=== PATIENT | female | born 2000 | race Caucasian/White ===

== ENCOUNTER 2021-07-14 06:21 | Emergency (ER) | payer SELFPAY ==
[2021-07-14 06:29] VITALS: BP 141/81; PULSE 111; RESP 18; TEMP 36.6; O2SAT 98; BMI 27.4
[2021-07-14 06:49] VITALS: BP 141/81; PULSE 115; RESP 18; TEMP 36.9; O2SAT 98
--- NOTE | 2021-07-14 07:18 | W.ED.ALLEREA ---
Documented by User: [email or web address] Patel 07/14/21 07:42 HPI - Allergic Reaction General: Chief complaint: Allergic Reaction Stated complaint: ALLERGIC REACTION/FULL BODY HIVES/ITCHY THROAT Time Seen by Provider: 07/14/21 06:26 Source: patient Mode of arrival: ambulatory Limitations: no limitations History of Present Illness: HPI narrative: Patient is a 21-year-old female who presents to ED today with a complaint of allergic reaction. Patient states she woke up this morning with diffuse urticaria and pruritus. She is also complaining of her tongue and mouth feeling itchy and scratchy. She has not noticed any intraoral swelling. 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 This reaction was 3 years ago when she has not had any further allergic reactions despite continuing to eat mammalian products. Patient took 50 mg Benadryl [employer]. MD complaint: allergic reaction and hives Onset (ago): hour(s) Exposure: unknown Associated symptoms: Deny abdominal pain, dizziness, nausea or vomiting Treatment prior to arrival: benadryl (50mg) Previous Allergic Reaction History: anaphylaxis Review of Systems Const: Denies: fever(s), chills, body aches, change in appetite, fatigue or malaise Eyes: Denies: change in vision or blurry vision ENMT: Reports: other (reports tongue and throat are scratchy); Denies: throat pain, odynophagia, swelling of lips/tongue, nasal discharge or nasal congestion Card: Denies: chest pain Resp: Denies: dyspnea GI: Denies: abdominal pain, nausea or vomiting Musc: Denies: neck pain, back pain, extremity pain or joint pain Skin/Breast: Reports: rash and pruritus Neuro: Denies: headache(s), numbness in extremities, weakness in extremities, sensory changes or dizziness Physical Exam Const: COMMON NORMALS: no acute distress, average body habitus, patient oriented x3, no limitations, healthy appearing, alert and well nourished GENERAL APPEARANCE: cooperative ORIENTATION/CONSCIOUSNESS: Yes awake, Yes oriented to person, Yes oriented to place and Yes oriented to time HENMT: COMMON NORMALS: normocephalic and atraumatic HEAD & SCALP: normocephalic and atraumatic FACE & SINUS: normal facial exam MOUTH: Normal oral and palatal mucosa present, lip normal, tongue normal and other (no angioedema) THROAT: posterior oropharynx normal, tonsils normal and uvula midline Resp: COMMON NORMALS: normal respiratory effort and clear to auscultation bilaterally AUSCULTATION: clear to auscultation bilaterally Cardio: COMMON NORMALS: regular rate and regular rhythm RATE: regular rate RHYTHM: regular rhythm Neuro: COMMON NORMALS: patient oriented x3 SENSORIUM/ORIENTATION: Yes alert, Yes oriented to person, Yes oriented to place and Yes oriented to time Skin: NARRATIVE SKIN EXAM: faint resolving urticaria noted Course Vital Signs: Vital signs: Vital Signs Temperature 97.9 F 07/14/21 07:47 Pulse Rate 90 07/14/21 07:47 Respiratory Rate 18 07/14/21 07:47 Blood Pressure 118/70 07/14/21 07:47 Pulse Oximetry 99 07/14/21 07:47 MDM - Allergic Reaction MDM Narrative: Medical decision making narrative: Patient states she does not want IV at this time for medications. Offered IM steroids but patient would like to go home. She states her hives are almost gone and she feels much better. She verbalizes return to ED instructions. Discharge Plan Discharge Patient Disposition: Home Clinical Impression: Allergic reaction Qualifiers: Encounter type: initial encounter Qualified Code(s): T78.40XA - Allergy, unspecified, initial encounter Condition: Stable Discharge Orders: Discharge ED (Routine); Ordered 07/14/21 Ordered By: Kayla Ryder Patient Instructions: Urticaria (ED), General Allergic Reaction (ED) Coding Level of Care Code ED Equipment Coordinator for Chg Fwd Exam Expanded Problem Focused Documented by User: Ismael Alvarado DO 07/14/21 08:56 HPI - Allergic Reaction General: Chief complaint: Allergic Reaction Stated complaint: ALLERGIC REACTION/FULL BODY HIVES/ITCHY THROAT Time Seen by Provider: 07/14/21 06:26 Course Vital Signs: Vital signs: Vital Signs Temperature 97.9 F 07/14/21 07:47 Pulse Rate 90 07/14/21 07:47 Respiratory Rate 18 07/14/21 07:47 Blood Pressure 118/70 07/14/21 07:47 Pulse Oximetry 99 07/14/21 07:47 MDM - Allergic Reaction MDM Narrative: Medical decision making narrative: Chart reviewed and patient discussed with midlevel. Agree with assessment and plan. Discharge Plan Discharge Patient Disposition: Home Clinical Impression: Allergic reaction Qualifiers: Encounter type: initial encounter Qualified Code(s): T78.40XA - Allergy, unspecified, initial encounter Condition: Stable Discharge Orders: Discharge ED (Routine); Ordered 07/14/21 Ordered By: Kayla Ryder Patient Instructions: Urticaria (ED), General Allergic Reaction (ED) Coding Level of Care Code ED Equipment Coordinator for Chg Fwd Exam Expanded Problem Focused
--- NOTE | 2021-07-14 07:20 | PC.NURSE ---
Unable to get IV access, but another nurse is attempting to gain IV access.
--- NOTE | 2021-07-14 07:42 | PC.NURSE ---
Unable to get IV access, and pt refused a shot and wants to go home. Provider aware.
[2021-07-14 07:47] VITALS: BP 118/70; PULSE 90; RESP 18; TEMP 36.6; O2SAT 99
== END 2021-07-14 07:48 | disposition home or self-care (01) ==
PROVIDERS: Emergency Provider Physician Assistant
DX: T78.40XA Allergy, unspecified, initial encounter (principal)
CPT/HCPCS: 96374; 96375; 99283